=== PATIENT | male | born 1965 | race Caucasian/White ===

== ENCOUNTER 2020-05-14 08:44 | Emergency (ER) | payer SELFPAY ==
[2020-05-14 09:04] VITALS: BP 137/78; PULSE 71; RESP 16; TEMP 36.8; O2SAT 99
--- NOTE | 2020-05-14 09:17 | ED.GENADULT ---
HPI - General Adult General Chief complaint: Ear Stated complaint: ear infection Time Seen by Provider: 05/14/20 09:18 Source: patient and RN notes reviewed Mode of arrival: ambulatory Limitations: no limitations History of Present Illness HPI narrative: 54-year-old male presents with complaints of left ear pain and swelling for the past 3 days. Old ear drops without relief, cold medications and Ibuprofen (last on 01/12/20) with some relief. Denies swimming or getting water into ears. Denies itching and drainage from ear. Denies trouble hearing. Denies URI symptoms, No high fevers or chills. Denies injury to the ear. No nasal drainage and congestion. Denies nausea, vomiting, tinnitus, and dizziness. The patient reports he have not been diagnosed with COVID-19. The patient reports he is not waiting for the results of a COVID-19 lab test. The patient reports he do not have fever, chills, weakness, fatigue, myalgia, or facial swelling. The patient reports he do not have a new or worsening cough or shortness of breath. Denies chest pain. The patient reports he do not have any rhinorrhea, congestion, sore throat, abdominal pain, and diarrhea. Tolerating po intake well. Denies recent traveling. Denies concerns for COVID-19 or exposures been home with limited outdoor exposure except for essential household needs, work, and return home. At this time, patient is not suspected of having COVID-19. Some parts of this dictation were generated by voice recognition software and may contain typographical and/or grammatical inaccuracies. Related Data Home Medications Medication Instructions Recorded Confirmed losartan-hydrochlorothiazide 1 tablet PO DAILY 05/14/20 05/14/20 simvastatin 20 mg PO DAILY 05/14/20 05/14/20 Allergies Allergy/AdvReac Type Severity Reaction Status Date / Time No Known Allergies Allergy Mild Unverified 12/28/08 20:23 Review of Systems Review of Systems: Narrative: CONSTITUTIONAL: Denies fever, chills, sweats. EYES: Denies visual changes, redness, discharge. ENT: Denies rhinorrhea, congestion, sore throat, drainage and itching. Complains of LT otalgia and swelling. CARDIOVASCULAR: Denies chest pain, palpitations, edema. RESPIRATORY: Denies dyspnea, wheezing, cough. GASTROINTESTINAL: Denies abdominal pain, nausea, vomiting, diarrhea. GENITOURINARY: Denies dysuria, hematuria, abnormal discharge. SKIN: Denies rash or itching. MUSCULOSKELETAL: Denies acute back pain, joint pain, or myalgia. NEUROLOGIC: Denies numbness or focal weakness. PSYCHIATRIC: Denies anxiety or depression. All systems reviewed & are unremarkable except as noted in HPI and below. [facility] Past Medical History Medical History (Updated 05/15/20 @ 00:00 by Mary Russell) Hypercholesteremia Hypertension Surgical History Surgical History (Updated 05/14/20 @ 09:27 by ROMMEL Crooks) Hx of appendectomy 1982 Family History Family History (Updated 05/14/20 @ 09:28 by ROMMEL Crooks) Father Alive and well Mother , Heart stopped No problems noted. Social History Social History (Updated 05/14/20 @ 09:29 by ROMMEL Crooks) Smoking status: Former smoker Tobacco type: cigarettes Second hand tobacco smoke exposure: No Smoking end date: 10/21/82 Alcohol intake: never Substance use: never Living arrangements: with family Occupation/Education: occupation Gender identity (if verbalized by the patient): Male Comments At time of signature, I have reviewed and agree with nursing past medical, surgical, social, and family history. Please see nursing chart for further information. There is no relevant family history pertinent to the presenting complaint. Exam Narrative: Exam Narrative: GENERAL: This is a well-nourished, well-developed patient, in no apparent distress. Talks in full sentences and ambulates with steady gait without dyspnea HEAD: normocephalic, atrau
== END 2020-05-14 09:33 | disposition home or self-care (01) ==
PROVIDERS: Emergency Provider Nurse Practitioner Family; PCP Family Medicine
DX: H60.392 Other infective otitis externa, left ear (principal); Z87.891 Personal history of nicotine dependence; E78.00 Pure hypercholesterolemia, unspecified; I10 Essential (primary) hypertension
CPT/HCPCS: 99213; G0463

== ENCOUNTER 2020-06-04 08:25 | Emergency (ER) | payer SELFPAY ==
[2020-06-04 08:33] VITALS: BP 133/80; PULSE 67; RESP 16; TEMP 36.7; O2SAT 99
--- NOTE | 2020-06-04 08:36 | ED.EAR ---
HPI - Ear Problem General Chief complaint: Ear Stated complaint: ear infection (r) Time Seen by Provider: 06/04/20 08:38 Source: patient and RN notes reviewed Mode of arrival: ambulatory Limitations: no limitations History of Present Illness HPI Narrative: This is a 54 years old male presented office for an evaluation of right ear pain for three days. States, his left ear pain has resolved with steroid and ear drops. He has tried the prescribed eardrop for the last two days with no relief. He is prone to ears infection . He denies recent swimming. He admits to using q-tip and peroxide for cleaning his ears. Related Data Home Medications Medication Instructions Recorded Confirmed losartan-hydrochlorothiazide 1 tablet PO DAILY 05/14/20 05/14/20 simvastatin 20 mg PO DAILY 05/14/20 05/14/20 Allergies Allergy/AdvReac Type Severity Reaction Status Date / Time No Known Allergies Allergy Mild Unverified 12/28/08 20:23 Review of Systems Review of Systems: Narrative: CONSTITUTIONAL: Denies fever ENT: Denies rhinorrhea, congestion, sore throat. Reports right otalgia. CARDIOVASCULAR: Denies chest pain, palpitation RESPIRATORY: Denies dyspnea, wheezing, cough GASTROINTESTINAL: Denies abdominal pain, nausea, vomiting SKIN: Denies rash MUSCULOSKELETAL: Denies acute back pain NEUROLOGIC: Denies lightheaded All other systems reviewed are negative, except as documented in HPI. [facility] Past Medical History Medical History Hypercholesteremia Hypertension Surgical History Surgical History Hx of appendectomy 1982 Family History Family History Father Alive and well Mother , Heart stopped No problems noted. Social History Social History Smoking status: Former smoker Tobacco type: cigarettes Second hand tobacco smoke exposure: No Smoking end date: 10/21/82 Alcohol intake: never Substance use: never Gender identity (if verbalized by the patient): Male Comments At time of signature, I agree with nursing past medical, surgical, social and family history. There is no relevant family history pertinent to the presenting complaint. Exam Narrative: Exam Narrative: GENERAL: This is a well-nourished, well-developed patient, in no apparent distress. EARS: External ears normal, left auditory canal clear and without drainage, right canal appears erythema and edematous with tragal tenderness. Both TMs normal without perforation. Hearing grossly intact. NECK: Neck supple, non-tender without lymphadenopathy, masses or thyromegaly. CARDIOVASCULAR: Regular rate and rhythm without murmurs, gallops, or rubs. RESPIRATORY: Clear to auscultation. Breath sounds equal bilaterally. No wheezes, rales, or rhonchi. GASTROINTESTINAL: Abdomen soft, non-tender, nondistended. Bowel sounds are active. No guarding. SKIN: warm, intact with no suspicious lesions or rash, good texture and turgor. NEURO: awake, alert, and oriented to person, place and time. There were no obvious focal neurologic abnormalities. Steady gait Narinder Coma Scale Eye Opening: Spontaneous 4 Carey Coma Scale Motor: Obeys Commands 6 Narinder Coma Scale Verbal: Oriented 5 Course Vital Signs Vital signs: Vital Signs Temperature 98.1 F 06/04/20 08:33 Pulse Rate 67 06/04/20 08:33 Respiratory Rate 16 06/04/20 08:33 Blood Pressure 133/80 06/04/20 08:33 Pulse Oximetry 99 06/04/20 08:33 Temperature 98.1 F 06/04/20 08:33 Pulse Rate 67 06/04/20 08:33 Respiratory Rate 16 06/04/20 08:33 Blood Pressure 133/80 06/04/20 08:33 Pulse Oximetry 99 06/04/20 08:33 Medical Decision Making MDM Narrative Medical decision making narrative: Discharge instructions reviewed with patient, as well as provided in
== END 2020-06-04 08:52 | disposition home or self-care (01) ==
PROVIDERS: Emergency Provider Nurse Practitioner; PCP Family Medicine
DX: H60.391 Other infective otitis externa, right ear (principal); Z87.891 Personal history of nicotine dependence; E78.00 Pure hypercholesterolemia, unspecified; I10 Essential (primary) hypertension
CPT/HCPCS: 99211; G0463

== ENCOUNTER 2024-05-08 19:21 | Emergency (ER) | payer OTHER, SELFPAY ==
[2024-05-08 19:40] VITALS: BP 148/105; PULSE 88; RESP 16; TEMP 36.4; O2SAT 99
--- NOTE | 2024-05-08 19:59 | ED.GENADULT ---
HPI - General Adult General Chief complaint: Skin/Abscess/Foreign Body Stated complaint: Rash Source: patient Mode of arrival: ambulatory Limitations: no limitations History of Present Illness HPI narrative: Patient presents for evaluation of a pruritic rash to the dorsal aspect of the left foot for the last 4 days. He was exposed to poison alyce 2 days prior to symptom onset. No fever, chills, nausea, vomiting. No difficulty breathing or swallowing. He has applied some topical products including calamine lotion. No new lotions, soaps, detergents, topical products prior to the time of symptom onset Related Data Home Medications Medication Instructions Recorded Confirmed losartan 50 mg-hydrochlorothiazide 1 tablet PO DAILY 05/14/20 05/08/24 12.5 mg tablet simvastatin 20 mg tablet 20 mg PO DAILY 05/14/20 05/08/24 Allergies Allergy/AdvReac Type Severity Reaction Status Date / Time No Known Allergies Allergy Mild Verified 05/08/24 19:27 Review of Systems Review of Systems: CONSTITUTIONAL: Denies fever, chills, or sweats. EYES: Denies visual changes, redness, or discharge. ENT: Denies rhinorrhea, congestion, sore throat, or otalgia. CARDIOVASCULAR: Denies chest pain, palpitations, or edema. RESPIRATORY: Denies cough or dyspnea. GASTROINTESTINAL: Denies abdominal pain, nausea, vomiting, or diarrhea. GENITOURINARY: Denies dysuria or hematuria. SKIN: reports pruritic rash to the dorsal aspect of foot. MUSCULOSKELETAL: Denies back pain, joint pain, or myalgia. NEUROLOGIC: Denies headache, numbness, dizziness, or weakness. PSYCHIATRIC: Denies anxiety or depression. [facility] Past Medical History Medical History Hypercholesteremia Hypertension Surgical History Surgical History Hx of appendectomy 1982 Family History Family History Father Alive and well Mother , Heart stopped No problems noted. Social History Social History Smoking status: Former smoker Tobacco type: cigarettes Second hand tobacco smoke exposure: No Smoking end date: 10/21/82 Alcohol intake: never Substance use: never Living arrangements: with family Occupation/Education: occupation Gender identity (if verbalized by the patient): Male Exam Narrative: GENERAL: Well-appearing, well-nourished, and in no acute distress. HEAD: Normocephalic, atraumatic. EYES: PERRLA and EOMI. ENT: Nares clear, no rhinorrhea or epistaxis. Mucous membranes moist. Oropharynx without tonsillar hypertrophy exudate or other lesions. Bilateral TMs pearly watson nonbulging NECK: Supple. No adenopathy or masses. No carotid bruits or JVD CHEST: Clear to auscultation. No respiratory distress. No wheezes rales or rhonchi HEART: Regular rate and rhythm. No murmur heard. Normal peripheral pulses. ABDOMEN: Soft, nontender, nondistended, normal active bowel sounds. EXTREMITIES: Normal range of motion. No edema. SKIN: There is an erythematous rash in a blotchy distribution to the dorsal aspect left foot which is covered with dried calamine lotion. NEURO: No focal deficits. Alert and oriented x3. PSYCH: Normal mood and affect. Course Course Emergency Course: THIS IS A 58-YEAR-OLD MALE WHO PRESENTED FOR EVALUATION OF A PRURITIC RASH TO THE DORSAL ASPECT OF THE LEFT FOOT. EXAM IS CONSISTENT WITH POISON SUMAC DERMATITIS VERSUS TINEA. WILL DISCHARGE WITH PREDNISONE. IN THE EVENT THAT HE IS NOT IMPROVING HE CAN TRY KETOCONAZOLE. FOLLOW-UP WITH PRIMARY PROVIDER. GO TO THE ER WORSENING SYMPTOMS. PATIENT IN AGREEMENT WITH PLAN OF CARE. Level of Care: Express Care Visit Vital Signs Vital signs: Vital Signs Temperature 36.4 C L 05/08/24 19:40 Pulse Rate 88 05/08/24 19:40 Respirat
== END 2024-05-08 20:05 | disposition home or self-care (01) ==
PROVIDERS: Emergency Provider Nurse Practitioner; PCP Family Medicine
DX: L23.7 Allergic contact dermatitis due to plants, except food (principal); R21 Rash and other nonspecific skin eruption; Z87.891 Personal history of nicotine dependence; E78.00 Pure hypercholesterolemia, unspecified; I10 Essential (primary) hypertension
CPT/HCPCS: 99213; G0463